=== PATIENT | female | born 1995 | race African-American/Black ===

== ENCOUNTER 2021-07-29 22:01 | Emergency (ER) | payer SELFPAY ==
--- NOTE | ~2021-07-29 | US_ITS ---
EXAMINATION: US OB transvaginal DATE: 07/30/2021 01:08 INDICATION: Spotting during first trimester TECHNIQUE: Real-time pelvic transabdominal and transvaginal ultrasound was performed. COMPARISON: None. FINDINGS: The uterus measures 10.6 x 8.7 x 7.3 cm. There is an intrauterine gestational sac. A yolk sac is identified. There is no cardiac motion. The crown rump length measures 2.2 cm , wh ich correlates with an estimated gestational age of 8 weeks and 6 day(s) (+/-) 6 day(s). The right ovary measures 2.8 x 1.7 x 2.7 cm. The left ovary measures 3.0 x 1.3 x 2.6 cm. There is nor mal vascular flow in the ovaries. There is no free fluid in the pelvis. IMPRESSION: 1. Findings diagnostic of failure. Reviewed, dictated and finalized at location A.
[2021-07-29 22:05] VITALS: BP 120/73; PULSE 76; RESP 16; TEMP 36.3; O2SAT 98
[2021-07-29 22:46] LABS: Appearance Urine Clear (Clear); Bilirubin Urine Negative (Negative); Blood Urine Trace-lysed (Negative); Color Urine Yellow (Yellow); Glucose Urine UA Negative (Negative); Ketones Urine Negative (Negative); Leukocyte Esterase Ur Negative LEU/UL (Negative); Nitrate Urine Negative (Negative); Protein Urine Negative (Negative); Urobilinogen Urine 0.2 mg/dL (<2.0)
[2021-07-29 22:50] LABS: Bacteria Urine Trace /hpf; RBC Urine 0-2 /hpf (0-2); Squamous Epithelial Cell Urine Few /hpf (Few); WBC Urine 0-3 /hpf
[2021-07-29 22:53] LABS: Add Urine Microscopic? YES
--- NOTE | 2021-07-29 23:43 | ED.FEMALEGU ---
HPI - Female Genitourinary General Chief complaint: Vaginal Bleeding <Mikki Nash PA-C - Last Filed: 07/30/21 03:15> Stated complaint: and spotting <Mikki Nash PA-C - Last Filed: 07/30/21 03:15> Time Seen by Provider: 07/29/21 23:28 <Mikki Nash PA-C - Last Filed: 07/30/21 03:15> History of Present Illness HPI Narrative: Patient is a 25-year-old G1, P0 female here for evaluation of vaginal spotting over the past 4 days. Patient states she notes small amounts of dark brown discharge in her underwear, but it has not been severe enough to bleed through a pad or tampon. She has not established with an [employer] yet, and she is unsure how far along she is, although her last menstrual period was the second week of April. She has not had an ultrasound to visualize IUP. Does note some abdominal cramping over the past day, but this is mild. Denies syncope, lightheadedness, chest pain, nausea, vomiting. <SHAYY Martin Last Filed: 07/30/21 03:15> Related Data Allergies/Adverse reactions: Allergies Allergy/AdvReac Type Severity Reaction Status Date / Time No Known Allergies Allergy Unverified 05/07/13 22:26 <Mikki Nash PA-C - Last Filed: 07/30/21 03:15> Review of Systems Review of Systems: Gen.: Denies fevers or chills Eyes: Denies eye pain or visual change ENT: Denies congestion Respiratory: Denies shortness of breath or cough CV: Denies chest pain or palpitations GI: Denies abdominal pain nausea, emesis or diarrhea : Reports vaginal bleeding. Denies burning, urgency, frequency or hematuria Musculoskeletal: Denies back pain or muscle pain Neuro: Denies numbness, tingling, weakness or focal weakness Skin: Denies rash Except as documented, all other systems reviewed and negative <SHAYY Martin Last Filed: 07/30/21 03:15> All systems reviewed & are unremarkable except as noted in HPI and below <Mikki Nash PA-C - Last Filed: 07/30/21 03:15> Exam Narrative: APPEARANCE: Well appearing, no pain in distress, well-nourished. Head: normocephalic and atraumatic. EYES: PERRLA/EOMI, conjunctivae clear NOSE: No nasal drainage EARS: External ear normal in appearance THROAT: Oropharynx is clear. Mucous membranes are moist. NECK: Supple. No adenopathy, no masses. RESPIRATORY: Airway patent, respirations nonlabored. Clear to auscultation bilaterally, no rales, rhonchi, wheezing. CARDIOVASCULAR: Regular rate and rhythm without murmurs, rubs, or gallops. ABDOMINAL: Normoactive bowel sounds. Soft, nontender, nondistended. No rebound tenderness or guarding. MUSCULOSKELETAL: Extremities are warm and well-perfused. Moves all extremities well. No edema. : Exam performed with assembling fabricator aaliyah. No blood noted in vaginal vault. Cervical os is closed. NEURO: Normal speech. No focal neurologic deficits. SKIN: Skin is warm and dry. No rashes. PSYCHIATRIC: Normal affect/mood. <Mikki Nash PA-C - Last Filed: 07/30/21 03:15> Course GRINDER OUTSIDE DIAMETER/PA Physician Supervision I did not see this patient but the care plan was discussed with me, labs and imaging reviewed. I agree with the documentation as above <Rich Calles MD - Last Filed: 07/30/21 04:21> Vital Signs Vital signs: Vital Signs Temperature 36.3 C L 07/29/21 22:05 Pulse Rate 76 07/29/21 22:05 Respiratory Rate 16 07/29/21 22:05 Blood Pressure 120/73 07/29/21 22:05 Pulse Oximetry 98 07/29/21 22:05 Temperature 36.3 C L 07/29/21 22:05 Pulse Rate 63 07/30/21 03:19 Respiratory Rate 18 07/30/21 03:19 Blood Pressure 105/57 L 07/30/21 03:19 Pulse Oximetry 100 07/30/21 03:19 <Mikki Nash PA-C - Last Filed: 07/30/21 03:15> Vital Signs Temperature 36.3 C L 07/29/21 22:05 Pulse Rate 76 07/29/21 22:05 Respiratory Rate 16 07/29/21 22:05 Blood Pressure 120/73 07/29/21 22:05 Pulse Oximetry 98 0
[2021-07-30 00:14] LABS: Basophils Percent Auto 0.4 % (0.2-1.2); Eosinophils Absolute Auto 0.2 K/mm3 (0-0.3); Hematocrit 34.7 % (37.0-47.0); Hemoglobin 11.4 g/dL (12.0-15.0); Immature Granulocyte Absolute 0.01 K/mm3 (0.00-0.031); Immature Granulocyte Percent A 0.1 % (0-0.5); Lymphocytes Absolute Auto 2.99 K/mm3 (0.9-3.2); Mean Corpuscular HGB Conc 32.9 g/dl (32-36); Mean Corpuscular Hemoglobin 30.3 pg (26-34); Mean Corpuscular Volume 92.3 fl (80-100); Monocytes Absolute Auto 0.7 K/mm3 (0.1-0.6); Neutrophils Percent Auto 50.5 % (45.5-73.1); Platelet Count Result 238 k/mm3 (150-375); Red Blood Count 3.76 M/mm3 (4.2-5.4); Red Cell Distribution Width 15.1 % (11.5-14.5); White Blood Count 7.9 K/mm3 (4.5-10.0)
[2021-07-30 01:27] VITALS: BP 94/56; PULSE 56; RESP 18; O2SAT 100
[2021-07-30] MEDS: SODIUM CHLORIDE 0.9% IV 1,000 ML 999 ML IV CONT (02:05)
[2021-07-30 03:19] VITALS: BP 105/57; PULSE 63; RESP 18; O2SAT 100
== END 2021-07-30 03:26 | disposition home or self-care (01) ==
PROVIDERS: Physician Assistant; Emergency Provider Emergency Medicine
DX: O03.9 Complete or unspecified spontaneous abortion without complication (principal)
CPT/HCPCS: 36415; 76817; 81001; 81025; 84702; 85025; 85461; 96360; 99284; J7030

== ENCOUNTER 2024-09-02 13:22 | Outpatient (CLI) | payer OTHER, SELFPAY ==
--- OUTSIDE RECORDS SUMMARY | 2024-09-02 14:38 | XMS_ITS | Clinical Summary ---
Author Organization [facility] Address [address] [place] [address] Care Team Providers Care Track Template Maker Name Role Phone Unavailable Primary Care Provider Unavailabl e Source Comments PLEASE NOTE, if this patient is a minor, it may be UNLAWFUL to discuss sensitive information that is contained in these records (such as FAMILY PLANNING, MENTAL HEALTH or SUBSTANCE ABUSE) with the minor patient's parent or other person without the patient's specific authorization.[facility] Social History Tobacco Use Types Packs/Day Years Used Date Smoking Tobacco: Never Assessed Comments Unknown Sex and Gender Information Value Date Recorded Sex Assigned at Not on file Legal Sex Female 9:33 AM PST Gender Identity Not on file Sexual Orientation Not on file Plan of Treatment Health Maintenance Due Date Last Done Comments Anxiety Screening 1995 HPV Screening 1995 Hepatitis C Screening 1995 Pap + HPV 1995 Tobacco Screening 1995 HIV Screening 09/17/2010 Relationship Safety Screening/Counseling 09/17/2010 Hypertension Screening (#1) 09/17/2013 Imm-DTaP/Tdap/Td (1 - Tdap) 09/17/2014 Imm-Hepatitis B (1 of 3 - 19+ 3-dose series) 5 Cervical Cancer Screening 09/17/2016 Pap Smear 09/17/2016 [id number] ( season) 2023 Alcohol and Drug Screen 03/27/2024 Depression Annual Screen 03/27/2024 Imm-Influenza (Season Ended) 2024 Cervical Ablation/Cold-Knife Conization Discontinued Cervical Cryotherapy Discontinued Colposcopy Discontinued Endometrial Biopsy Discontinued Excision/Leep Discontinued HPV Genotyping Discontinued Vaginal Pap Discontinued Vulvoscopy Discontinued
--- OUTSIDE RECORDS SUMMARY | 2024-09-02 14:38 | XMS_ITS | Clinical Summary ---
Author Organization [facility] Address [address] [place] [address] Care Team Providers Care Overhead Cleaner Name Role Phone Unknown, Provider Primary Care Provider Unavaila ble Source Comments [facility]non-owned Affiliates and Associated Physician Practices is amultiple site organization consisting of ambulatory clinics and hospital sitesin [place], [place], [place] and [place]. This disclosure is being madepursuant to the Care Everywhere program and may not contain all information available regarding this patient. Last updated [employer] [facility] Allergies No known active allergies Medications * Be aware that medications may not be up to date on this document. Alwaysverify current medications with the patient. hydrocortisone (HYTONE) 2.5 % cream Apply to affected area 2 times daily 20 g 9 Active Additional Information Patient not taking.Reported on 07/11/2018 Turmeric 450 MG Take 450 mg by mouth once daily Active Tea Tree Oil 15 % 1 drop by Apply externally route as needed Active doxycycline hyclate (VIBRAMYCIN) 100 MG tabletIndicatio ns:Acne Vulgaris Take 1 pill twice a day with food. 30 DS. Reasons: Common Acne 60 tablet 3 9 Active clindamycin (CLEOCIN) 1 % lotion Apply to affected area on axillae, groin, and buttocks daily. 30 day supply. 60 mL 3 9 Active mupirocin (BACTROBAN) 2 % ointmentIndicat ions:Superficia l bacterial skin infection Apply to nares, under fingernails, behind ears, belly button, and perianal BID x 7 days. Repeat monthly for 3 mos. 30 g 3 9 Active naproxen (NAPROSYN) 500 MG tabletIndicatio ns:Hidradenitis suppurativa,Enc ounter for incision and drainage procedure Take 1 tablet by mouth 2 times daily 30 tablet 9 Active chlorhexidine gluconate (HIBICLENS) 4 % solutionIndicat ions:Hidradenit is suppurativa,Enc ounter for incision and drainage procedure Apply to affected area 2 times daily as soap in shower. Avoid eyes. 118 mL 1 9 Active NUVARING 0.12-0.015 MG/24HR vaginal ringIndications :Dysmenorrhea Place 1 device vaginally x 3wks. Remove at end of 3rd week & replace new device at end of 4th wk. 3 device 3 9 Active Active Problems Problem Noted Date Diagnosed Date Hidradenitis suppurativa 07/11/2018 Superficial bacterial skin infection 07/11/2018 Postinflammatory hyperpigmentation 07/11/2018 Family History Medical History Relation Name Comments Asthma Neg Hx CVA Neg Hx Cancer - Breast Neg Hx Cancer - Other Neg Hx Cancer - Skin, Melanoma Neg Hx Cancer - Skin, Non Melanoma Neg Hx Eczema Neg Hx Hemophilia Neg Hx Psoriasis Neg Hx Relation Name Status Comments Brother 2 Alive Father Alive Mother Alive Sister 1 Alive Social History Tobacco Use Types Packs/Day Years Used Date Smoking Tobacco: Never Smokeless Tobacco: Never Alcohol Use Standard Drinks/Week Comments Yes 2 (1 standard drink = 0.6 oz pur e alcohol) Comments Unknown Sex and Gender Information Value Date Recorded Sex Assigned at Not on file Legal Sex Female 10:25 PM CAD ADMINISTRATOR Gender Identity Not on file Sexual Orientation Not on file Last Filed Vital Signs Vital Sign Reading Time Taken Comments Blood Pressure 118/70 07/18/2018 8:43 AM CDT Pulse 80 07/18/2018 8:43 AM CDT Temperature 36.8 C (98.2 F) 07/18/2018 8:43 AM CDT Respiratory Rate 20 07/18/2018 8:43 AM CDT Oxygen Saturation 97% 12/14/2016 8:54 AM CDT Inhaled Oxygen Concentration - - Weight 83.9 kg (185 lb) 07/18/2018 8:43 AM CDT Height 180.3 cm (5' 11) 07/18/2018 8:43 AM CDT Body Mass Index 25.8 07/18/2018 8:43 AM CDT Plan of Treatment Health Maintenance Due Date Last Done Comments DTAP/TDAP/TD VACCINES (1 - Tdap) 09/17/2014 HEPATITIS B VACCINE (1 of 3 - 19+ 3-dose series) 09/17/2014 COVID-19 VACCINE (1 - 2023-2 5 season) 2023 DEPRESSION SCREENING 03/27/2024 INFLUENZA VACCINE (Season Ended) 2024 ZOSTER VACCINE (1 of 2) 09/17/2045 HEPATITIS C SCREENING Completed 05/09/2017 HIV SCREENING Completed 05/09/2017 HIB VACCINE Aged Out No longer eligi ble based on patient's age to complete this topic HPV VACCINE Aged Out No longer eligi ble based on patient's age to complete this topic MENINGOCOCCAL (Group B) VACC INE SHARED DECISION-MAKING Aged Out No longer eligibl e based on patient's age to complete this topic MENINGOCOCCAL GROUPS A/C/Y/W VACCINE Aged Out No longer eligible b ased on patient's age to complete this topic PNEUMOCOCCAL VACCINE Aged Out No long er eligible based on patient's age to complete this topic Procedures Procedure Name Priority Date/Time Associated Diagnosis Comments HEPATITIS C AB W/RFLX TO HCV RNA QN PCR Routine 05/09/2017 10:54 AM CAD ADMINISTRATOR HIV-1 HIV-2 ANTIGEN/ANTIBODY Routine 05/09/2017 10:54 AM CAD ADMINISTRATOR from Last 3 Months or Most Recently Relevant to Health Maintenance Results * HIV-1 HIV-2 ANTIGEN/ANTIBODY (05/09/2017 10:54 AM CAD ADMINISTRATOR) HIV Antigen/Antibody 4th Generation NON-REACT LINDSEY NON-REACT LINDSEY [facility]) Comment: HIV-1 antigen and HIV-1/HIV-2 antibodies were not detected. There is no laboratory evidence of HIV infection. PLEASE NOTE: This information has been disclosed to you from records whose confidentiality may be protected by state law. If your state requires such protection, then the state law prohibits you from making any further disclosure of the information without the specific written consent of the person to whom it pertains, or as otherwise permitted by law. A general authorization for the release of medical or other information is NOT sufficient for this purpose. For additional information please refer to http://education.[employer]/faq/ALI934 (This link is being provided for informational/ educational purposes only.) The performance of this assay has not been clinically validated in patients less than 2 years old. Test Performed at: [place] [address] KRYSTIAN KAPADIA DO,MPH 05/09/2017 10:5 4 AM CAD ADMINISTRATOR 05/10/2017 5:13 AM CAD ADMINISTRATOR Patito Nino MD LAB - HEMATOLOGY ORDERABLES Fin al Result Performing Organization Address [facility] Co de Phone Number [facility] ([facility]) [phone] * HEPATITIS C AB W/RFLX TO HCV RNA QN PCR (05/09/2017 10:54 AM CAD ADMINISTRATOR) Hepatitis C Antibody NON-REACTI VE NON-REACT LINDSEY [facility] ([facility]) Signal/Cutoff 0.19 <1.00 [facility]) Comment: Test Performed at: [place] [address] KRYSTIAN KAPADIA DO,MPH 05/09/2017 10:5 4 AM CAD ADMINISTRATOR 05/10/2017 5:13 AM CAD ADMINISTRATOR Patito Nino MD LAB - CHEMISTRY ORDERABLES Maryam l Result Performing Organization Address [facility] Co de Phone Number [facility] ([facility]) [phone] from Last 3 Months or Most Recently Relevant to Health Maintenance Insurance [employer] [address] [place] [address] Care Teams Overhead Cleaner Relationship Specialty Start Date End Date Unknown, Provider PCP - General 07/10/17
[2024-09-02 14:48] LABS: Syphilis IgG/IgM Antibody Non-Reactive (Nonreactive)
[2024-09-02 14:52] LABS: Hepatitis B Surface Antigen Negative (Negative)
[2024-09-02 14:58] LABS: HAV RESULT Negative (Negative); Hepatitis B Core IgM Result Negative (Negative)
[2024-09-02 15:04] LABS: HIV 1/2 Ab P24 Ag Result Negative (Negative)
[2024-09-02 15:09] LABS: Hepatitis C Virus Antibody Negative (Negative)
== END 2024-09-02 13:23 | disposition home or self-care (01) ==
LOC: ANHLAB 13:24
PROVIDERS: Visit Provider Student in an Organized Health Care Education/Training Program
DX: Z20.2 Contact with and (suspected) exposure to infections with a predominantly sexual mode of transmission (principal)
CPT/HCPCS: 36415; 80074; 86593; 86695; 86696; 86703; G0432

== ENCOUNTER 2025-02-25 17:13 | Outpatient (CLI) | payer OTHER, SELFPAY ==
[2025-02-25 18:28] LABS: HIV 1/2 Ab P24 Ag Result Negative (Negative)
[2025-02-25 18:30] LABS: Syphilis IgG/IgM Antibody Non-Reactive (Nonreactive)
[2025-02-25 18:35] LABS: Hepatitis B Surface Antigen Negative (Negative)
[2025-02-25 18:41] LABS: HAV RESULT Negative (Negative); Hepatitis B Core IgM Result Negative (Negative)
[2025-02-26 10:09] LABS: HSV 1 IgG, Type Spec Reactive (Non Reactive); HSV 2 IgG, Type Spec Non Reactive (Non Reactive)
== END 2025-02-25 17:14 | disposition home or self-care (01) ==
PROVIDERS: Visit Provider Student in an Organized Health Care Education/Training Program
DX: Z20.2 Contact with and (suspected) exposure to infections with a predominantly sexual mode of transmission (principal)
CPT/HCPCS: 36415; 80074; 86593; 86695; 86696; 86703; G0432